=== PATIENT | male | born 1945 | race Caucasian/White ===

== ENCOUNTER 2020-04-11 09:13 | Observation (INO) ==
--- NOTE | 2020-03-02 15:05 | PAT Medication Instructions ---
Medication Instructions Date of Service March 02, 2020 Home Medications apixaban [Eliquis] 5 mg PO BID cholecalciferol (vitamin D3) [Vitamin D3] 50 mcg PO QAM coQ10 (ubiquinol) 100 mg PO QPM diltiazem HCl 240 mg PO QAM [id number]-C-sandra-bosw [Osteo Bi-Flex Triple Strength] 1 tab PO BID magnesium oxide 250 mg PO QAM hezhfjeienbv-vcerubuk-tlzlnp [Multivitamin 50 Plus] 1 tab PO QAM rosuvastatin 20 mg PO QPM ASK your prescriber and surgeon apixaban [Eliquis] 5 mg PO BID -- must be held for at least 3 full days prior to surgery for spinal anesthesia block. Check with you prescriber before stopping. STOP taking 2 weeks before surgery coQ10 (ubiquinol) 100 mg PO QPM [id number]-cwpw-[id number]-C-sandra-bosw [Osteo Bi-Flex Triple Strength] 1 tab PO BID DO NOT take the morning of surgery cholecalciferol (vitamin D3) [Vitamin D3] 50 mcg PO QAM magnesium oxide 250 mg PO QAM [Multivitamin 50 Plus] 1 tab PO QAM Take morning of surgery With a small sip of water, OTHERWISE NOTHING TO EAT OR DRINK AFTER MIDNIGHT: diltiazem HCl 240 mg PO QAM Take evening before surgery rosuvastatin 20 mg PO QPM Other Notes If you have any questions please call us at [phone] or [phone] or [phone] or [phone]
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
[2020-03-06 12:29] LABS: Basophils # (auto) 0.02 K/uL (0-0.2); Basophils % (auto) 0.3 %; Eosinophils # (auto) 0.04 K/uL (0-0.5); Eosinophils % (auto) 0.6 %; Hematocrit (blood only) 41.1 % (42-52); Hemoglobin 14.1 g/dL (14.0-18.0); Immature Granulocytes # (auto) 0.01 K/uL (0.00-0.02); Immature Granulocytes % (auto) 0.1 %; Lymphocytes # (auto) 1.73 K/uL (1.2-3.4); Lymphocytes % (auto) 25.1 %; Mean Corpuscular Hemoglobin 32.3 pg (25-34); Mean Corpuscular Hgb Conc 34.3 g/dL (32-36); Mean Corpuscular Volume 94.1 fL (80-100); Monocytes # (auto) 0.83 K/uL (0.11-0.59); Neutrophils # (auto) 4.26 K/uL (1.4-6.5); Neutrophils % (auto) 61.9 %; Platelet Count 224 K/uL (130-400); RDW Coefficient of Variation 12.7 % (11.5-14.5); RDW Standard Deviation 43.8 fL (36.4-46.3); Red Blood Count 4.37 M/uL (4.7-6.1); White Blood Count 6.89 K/uL (4.8-10.8)
[2020-03-06 12:30] LABS: Appearance Urine Clear (Clear); Bilirubin Urine Negative (Negative); Blood Urine Negative (Negative); Color Urine Dark Yellow; Glucose Urine UA 1+ (Negative); Ketones Urine Negative (Negative); Leukocyte Esterase Urine Negative (Negative); Nitrite Urine Negative (Negative); Protein Urine Negative (Negative); Specific Gravity Urine 1.021 (1.000-1.030); Urobilinogen Urine Negative (Negative); pH Urine 5.5 (4.5-7.5)
[2020-03-06 12:38] LABS: Albumin Level 3.8 gm/dl (3.4-5.0); BUN Creatinine Ratio 19.3 (10-20); Calcium 9.6 mg/dl (8.5-10.1); Creatinine Clr Calc Pharmacy 75.6 ml/min; Est GFR (African American) 83.7; Est GFR (Non-African American) 72.2; Potassium 3.9 mmol/L (3.5-5.1)
[2020-03-06 12:47] LABS: Estimated Average Glucose 146 mg/dl; Hemoglobin A1C 6.7 % (4.5-5.6)
[2020-03-06 12:52] LABS: INR 1.1 (0.9-1.1); Partial Thromboplastin Ratio 1.1; Partial Thromboplastin Time 29.9 Seconds (21.0-31.0); Prothrombin Time 11.6 Seconds (9.0-12.0)
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
[~2020-04-11 09:13] MED LIST: ACETAMINOPHEN 500 MG TAB PO SCH; BUPIVACAINE 0.5 % 5 MG/1 ML PF 10ML VIAL ONE; CeleBREX 200 MG CAP PO SCH; EPINEPHrine INJ 1 MG/ML AMP ONE; FAMOTIDINE 20 MG TAB PO SCH; GABAPENTIN 300 MG CAP PO SCH; LR 500ML BOLUS, THEN 15ML/HR IV SCH; METOCLOPRAMIDE HCL 10 MG TABLET PO SCH; ROPIVACAINE 0.5% 5 MG/ML 30 ML VIAL ONE; ROPIVACAINE 0.5% HCL/PF 150 MG, BUPIVACAINE 0.5% MPF 30 ML, EPINEPHrine 30MG/30ML (OR U... INFIL SCH; TRANEXAMIC ACID 1,000 MG **IV Intra-op IV SCH; TRANEXAMIC ACID 1,000 MG **IV Pre-op IV SCH; ceFAZolin 2000MG 2,000 MG/15 ML SYR IV SCH; dexAMETHasone 4 MG TAB PO SCH
[2020-04-11] MEDS ORDERED: LIDOCAINE HCL 2% 2 ML VIAL/AMP(20MG/ML) INFIL ONE (09:33)
[2020-04-11] MEDS ORDERED: fentaNYL citrate 100 MCG/2 ML VIAL ONE (09:33)
[2020-04-11] MEDS ORDERED: MIDAZOLAM HCL 1 MG/ML 2ML VIAL ONE ×3 (09:33→11:24)
[2020-04-11] MEDS ORDERED: HYDROmorphone INJ 1 MG/ML SYRINGE IV PRN (09:53)
[2020-04-11] MEDS ORDERED: ATROPINE SULFATE 0.1 MG/ML 10ML SYR IV PRN (09:53)
[2020-04-11] MEDS ORDERED: MEPERIDINE HCL 25 MG/ML CARP/VIAL IV PRN (09:53)
[2020-04-11] MEDS ORDERED: PHENYLEPHRINE 100MCG/ML 5ML SYR IV PRN (09:53)
[2020-04-11] MEDS ORDERED: ONDANSETRON INJ 2 MG/ML 2 ML VIAL IV PRN ×2 (09:53→15:28)
[2020-04-11] MEDS ORDERED: fentaNYL citrate 100 MCG/2 ML VIAL IV PRN (09:53)
[2020-04-11] MEDS ORDERED: LABETALOL HCL IV 5 MG/ML 20ML IV PRN (09:53)
[2020-04-11] MEDS ORDERED: ePHEDrine sulfate 50 MG/ML AMP IV PRN (09:53)
--- NOTE | 2020-04-11 10:03 | History & Physical Bridge Note ---
Date of Service April 11, 2020 History & Physical Bridge Note I have examined the patient, reviewed the History & Physical and in the interval since the performance of the History & Physical I have noted the following changes of clinical significance: no changes noted
[2020-04-11] MEDS ORDERED: ONDANSETRON INJ 2 MG/ML 2 ML VIAL ONE (10:39)
[2020-04-11] MEDS ORDERED: BACITRACIN INJ 50,000 UNIT VIAL ONE (10:40)
[2020-04-11] MEDS ORDERED: ORTHO JOINT ANESTHETIC ONE (10:40)
[2020-04-11] MEDS ORDERED: PROPOFOL IV EMULSION 10 MG/ML 20 ML VIAL IV ONE (12:00)
[2020-04-11] MEDS ORDERED: PHENYLEPHRINE 100MCG/ML 5ML SYR ONE (12:44)
[2020-04-11] MEDS ORDERED: ePHEDrine sulfate 50 MG/ML SYR ONE (12:44)
--- NOTE | 2020-04-11 12:47 | Operative Report ---
Post Operative Report Pre & Post Diagnosis Operation Date: 04/11/20 10:45 Pre-Op Diagnosis: Osteoarthritis, Left Knee Post-Op Diagnosis: Osteoarthritis, Left Knee I identified the patient and participated in the time-out.: Yes Procedure 6 tibia 10 poly-Utilizing [employer] neelaney 2 patient matched total knee arthroplasty size 6 femur 10 poly 32 oval patella Operation Date: 04/11/20 10:45 Actual Procedures p Left Total Knee Arthroplasty(Left) - Fahad Grady DO Surgeon Fahad Grady DO Pot Filler Jabier RASMUSSEN Estimated Blood Loss 5 Findings Consistent with Post-Op Diagnosis Patient presents with severe end-stage tricompartmental degenerative joint disease left knee varus alignment eburnated [id number] marginal osteophyte subchondral sclerosis moderate to large effusion Specimens Bone and cartilage Drains Medium bore Hemovac Anesthesia Type MAC Spinal Regional Complications none Disposition Accompanied Patient To Recovery: No Disposition: Recovery Room Indications Patient resents with severe end-stage tricompartmental degenerative joint disease in the failing conservative management clinic physical therapy anti- inflammatories relative rest activity modification corticosteroid injection Visco supplementation patient presents for left total knee arthroplasty Description of Procedure After proper prepping and draping of the left lower extremity anterior midline incision was made over the region of the extensor extensor mechanism after meticulous hemostasis was obtained and maintained in subcutaneous tissues a medial parapatellar incision was made The patella was subluxed lateralward the medial lateral gutter were cleaned from any hypertrophic synovitis and scar tissue of the distal femoral block was placed and the distal femoral osteotomy cut was made subsequently the chamfers anterior and posterior osteotomy cuts were made utilizing the 4-in-1 block the tibia was subsequently subluxed anteriorward medial and ateral meniscal remnants were excised in their entirety remnants of the anterior and posterior cruciate ligaments were excised in their entirety excellent exposure of the proximal tibia was obtained the tibial osteotomy guide was placed on the proximal tibial osteotomy cut was made once again the knee was irrigated with copious amounts of sterile saline solution the patella was subsequently everted lateralward thickened scar tissue around the patella was removed the patella was subsequently cut utilizing a freehand techni que and was drilled prepared for final preparation and placement of patella socially flexion-extension gaps were checked and the equal and symmetric trials were placed to the appropriate femoral and tibial trials with poly-spacer being placed for equal flexion and extension gaps and full range of motion including extension to 0 and flexion to 140 the trial components after having been taken to recovery range of motion was subsequently removed meticulous hemostasis was obtained and maintained subsequently a knee block injection of joint cocktail including ropivacaine 0.5% 150 mg. Bupivacaine 0.5% epinephrine 1-200,030 mL's toradol 30 mg dexamethasone 4 mg ketamine 10 mg clonidine 100 micrograms normal saline solution 30 mg was infiltrated into the soft tissues of the posterior knee medial lateral gutters and periosteal synovium special attention was paid to protect neurovascular structures at all times subsequently trial components having been removed the knee was irrigated with sterile saline solution. debris was removed the proximal tibia was subsequently prepared and was made ready for the placement of the tibial component tibial component was also cemented and tamped into position the femoral component was subsequently placed and cemented in the position the patellar component was subsequently cemented in position because hemostasis once again obtained and maintained wound having been thoroughly irrigated with debridement and debridement lavage was performed as well as a medial parapatellar incision closed with #1 Vicryl in interrupted fashion subcutaneous was closed with #2 Vicryl skin was closed with skin clips. PA-C was necessary for prepping and drapping as well as wound closure of deep fascia Sub cutaneous tissue and skin and was necessary for the case. A sterile compressive dressing was placed patient was taken to recovery in stable condition of report dictated by Miguel A I attest to the content of the Intraoperative Record and any orders documented therein. Any exceptions are noted below. I attest to the content of the Intraoperative Record and any orders documented therein. Any exceptions are noted below.
--- NOTE | 2020-04-11 14:11 | XRay Report ---
XR knee LT 1 or 2V routine CLINICAL HISTORY: Postoperative evaluation. COMPARISON: None FINDINGS: Alignment of the total left knee arthroplasty is anatomic. There is no periprosthetic frac ture or unexpected radiopaque foreign body. There is moderate vascular calcification. Surgical drain is noted. IMPRESSION: Expected findings following total left knee arthroplasty. ACT 112: Negative or not required by law. Electronically signed by: Brent Schmitz M.D. 04/11/2020 2:10 PM
--- NOTE | 2020-04-11 14:22 | Anesthesiology Progress Note ---
Date of Service April 11, 2020 Anesthesia Post Procedure Vital Signs Vital Signs: Temp Pulse Pulse Resp BP Pulse Ox 04/11/20 14:15 63 16 114/67 97 04/11/20 14:05 36.5 C 69 16 114/75 97 04/11/20 13:55 73 16 129/82 95 04/11/20 13:45 78 16 124/74 99 04/11/20 13:35 36.4 C L 88 16 118/66 95 04/11/20 10:26 36.9 C 58 L 18 149/82 H 98 04/11/20 09:47 36.5 C 58 L 18 166/94 H 96 Transfer of Care Handoff Completed per policy Notes Mental Status: alert / awake / arousable Patient Amnestic to Procedure: Yes Nausea / Vomiting: adequately controlled Pain: adequately controlled Airway Patency, RR, SpO2: stable & adequate BP & HR: stable & adequate Hydration State: stable & adequate Neuraxial Anesthesia: was administered and sensory block is resolving Anesthetic Complications: no major complications apparent and Pt Satisfied with anesthetic care
[2020-04-11] MEDS ORDERED: bisacodyL 10 MG SUPP PR PRN (15:28)
[2020-04-11] MEDS ORDERED: NALOXONE HCL 0.4 MG/1 ML VIAL/CARP IV PRN (15:28)
[2020-04-11] MEDS ORDERED: MAGNESIUM HYDROXIDE SUSP 30 ML UDC PO PRN (15:28)
[2020-04-11] MEDS ORDERED: HYDROmorphone INJ 0.5 MG/0.5 ML SYR IV PRN (15:28)
[2020-04-11] MEDS: SODIUM CHLORIDE 0.9% 1000ML 1,000 ML IV SCH (16:53)
[2020-04-11] MEDS: FERROUS GLUCONATE 324 MG TAB PO SCH (17:50)
[2020-04-11] MEDS: ACETAMINOPHEN 500 MG TAB PO SCH (17:51)
[2020-04-11] MEDS: APIXABAN 5 MG TABLET PO SCH (20:20)
[2020-04-11] MEDS: ceFAZolin 2000MG 2,000 MG/15 ML SYR IV SCH (20:20)
[2020-04-11] MEDS: DOCUSATE SODIUM 100 MG CAP PO SCH (20:21)
[2020-04-11] MEDS ORDERED: SENNA 8.6 MG TAB PO SCH (21:00)
[2020-04-11] MEDS ORDERED: ROSUVASTATIN CALCIUM 20 MG TAB PO SCH (21:00)
[2020-04-11] MEDS ORDERED: NON-FORMULARY MEDICATION (Coq10 (Ubiquinol) 100 mg Capsule) PO SCH (21:00)
[2020-04-11] MEDS: oxyCODONE HCL IR 5 MG TAB (IMMEDIATE RELEASE) PO PRN (23:34)
[2020-04-12] MEDS: ceFAZolin 2000MG 2,000 MG/15 ML SYR IV SCH (03:11)
[2020-04-12] MEDS: ACETAMINOPHEN 500 MG TAB PO SCH ×2 (03:13→09:06)
[2020-04-12] MEDS: SODIUM CHLORIDE 0.9% 1000ML 1,000 ML IV SCH (03:47)
[2020-04-12] MEDS: oxyCODONE HCL IR 5 MG TAB (IMMEDIATE RELEASE) PO PRN (05:58)
[2020-04-12 06:08] LABS: Hematocrit (blood only) 35.1 % (42-52); Hemoglobin 12.1 g/dL (14.0-18.0); Mean Corpuscular Hemoglobin 32.3 pg (25-34); Mean Corpuscular Hgb Conc 34.5 g/dL (32-36); Mean Corpuscular Volume 93.6 fL (80-100); Mean Platelet Volume 10.2 fL (7.4-10.4); Platelet Count 223 K/uL (130-400); RDW Coefficient of Variation 12.5 % (11.5-14.5); RDW Standard Deviation 42.5 fL (36.4-46.3); Red Blood Count 3.75 M/uL (4.7-6.1); White Blood Count 13.94 K/uL (4.8-10.8)
[2020-04-12 06:29] LABS: BUN Creatinine Ratio 17.6 (10-20); Calcium 8.9 mg/dl (8.5-10.1); Creatinine Clr Calc Pharmacy 71.2 ml/min; Est GFR (African American) 79.1; Est GFR (Non-African American) 68.2; Potassium 4.1 mmol/L (3.5-5.1)
--- NOTE | 2020-04-12 07:50 | Orthopedic Progress Note ---
Date of Service April 12, 2020 Assessment & Plan (1) Arthritis of knee, left: Postop day 1 status post left total knee arthroplasty. Mild leukocytosis-patient asymptomatic currently. Likely due to surgical stress and preoperative steroids. PT/OT protocols. Weightbearing as tolerated. DVT prophylaxis-apixaban twice daily, SCDs, AROLDO andrade. Pain management as written. DC planning -patient planning for home health services upon discharge. Admission and Anticipated Discharge Date Admission Date: April 11, 2020 Subjective Postop day 1 Patient currently sitting up in bed awake and alert. He appears comfortable. States he has some stiffness in the operative knee this morning but otherwise is feeling fine. Denies any shortness of breath, chest pain, lightheadedness. Pain is controlled. Physical Exam Physical Exam: Dressings are clean, dry, and intact. Calves are soft and nontender. Neurovascular is intact. Toes are mobile. He has good dorsiflexion and plantarflexion in the left foot and ankle. Hemovac drainage was 50 mL from the previous shift. Results & Data ([facility]) Vital Signs (Past 12 Hours) Vital Signs Temp Pulse Resp BP Pulse Ox 04/12/20 03:14 36.5 C 56 L 14 146/88 H 96 04/11/20 23:55 36.5 C 63 18 135/81 95 Laboratory Results Laboratory Results WBC 13.94 K/uL (4.8-10.8) H 04/12/20 05:36 RBC 3.75 M/uL (4.7-6.1) L 04/12/20 05:36 Hgb 12.1 g/dL (14.0-18.0) L 04/12/20 05:36 Hct 35.1 % (42-52) L 04/12/20 05:36 MCV 93.6 fL (80-100) 04/12/20 05:36 MCH 32.3 pg (25-34) 04/12/20 05:36 MCHC 34.5 g/dL (32-36) 04/12/20 05:36 RDW Std Deviation 42.5 fL (36.4-46.3) 04/12/20 05:36 RDW Coeff of Glen 12.5 % (11.5-14.5) 04/12/20 05:36 Plt Count 223 K/uL (130-400) 04/12/20 05:36 MPV 10.2 fL (7.4-10.4) 04/12/20 05:36 Immature Gran % (Auto) 0.1 % 03/06/20 11:42 Neut % (Auto) 61.9 % 03/06/20 11:42 Lymph % (Auto) 25.1 % 03/06/20 11:42 [place] % (Auto) 12.0 % 03/06/20 11:42 Eos % (Auto) 0.6 % 03/06/20 11:42 Baso % (Auto) 0.3 % 03/06/20 11:42 Neut # (Auto) 4.26 K/uL (1.4-6.5) 03/06/20 11:42 Lymph # (Auto) 1.73 K/uL (1.2-3.4) 03/06/20 11:42 [place] # (Auto) 0.83 K/uL (0.11-0.59) H 03/06/20 11:42 Eos # (Auto) 0.04 K/uL (0-0.5) 03/06/20 11:42 Baso # (Auto) 0.02 K/uL (0-0.2) 03/06/20 11:42 Immature Gran # (Auto) 0.01 K/uL (0.00-0.02) 03/06/20 11:42 PT 11.6 Seconds (9.0-12.0) 03/06/20 11:42 INR 1.1 (0.9-1.1) 03/06/20 11:42 APTT 29.9 Seconds (21.0-31.0) 03/06/20 11:42 PTT Ratio 1.1 03/06/20 11:42 Sodium 137 mmol/L (136-145) 04/12/20 05:36 Potassium 4.1 mmol/L (3.5-5.1) 04/12/20 05:36 Chloride 107 mmol/L (98-107) 04/12/20 05:36 Carbon Dioxide 25 mmol/L (21-32) 04/12/20 05:36 Anion Gap 5.0 (3-11) 04/12/20 05:36 BUN 19 mg/dl (7-18) H 04/12/20 05:36 Creatinine 1.08 mg/dl (0.6-1.4) 04/12/20 05:36 Est Cr Clr Drug Dosing 71.2 ml/min 04/12/20 05:36 Est GFR ( Amer) 79.1 04/12/20 05:36 Est GFR (Non-Af Amer) 68.2 04/12/20 05:36 BUN/Creatinine Ratio 17.6 (-20) 04/12/20 05:36 Glucose 168 mg/dl (70-99) H 04/12/20 05:36 POC Glucose 175 mg/dl (70-99) H 04/11/20 17:27 Estimat Average Glucose 146 mg/dl 03/06/20 11:42 Hemoglobin A1c 6.7 % (4.5-5.6) H 03/06/20 11:42 Calcium 8.9 mg/dl (8.5-10.1) 04/12/20 05:36 Albumin 3.8 gm/dl (3.4-5.0) 03/06/20 11:42 Urine Color Dark Yellow 03/06/20 11:42 Urine Appearance Clear (Clear) 03/06/20 11:42 Urine pH 5.5 (4.5-7.5) 03/06/20 11:42 Ur Specific [place] 1.021 (1.000-1.030) 03/06/20 11:42 Urine Protein Negative (Negative) 03/06/20 11:42 Urine Glucose (UA) 1+ (Negative) H 03/06/20 11:42 Urine Ketones Negative (Negative) 03/06/20 11:42 Urine Blood Negative (Negative) 03/06/20 11:42 Urine Nitrite Negative (Negative) 03/06/20 11:42 Urine Bilirubin Negative (Negative) 03/06/20 11:42 Urine Urobilinogen Negative (Negative) 03/06/20 11:42 Ur Leukocyte Esterase Negative (Negative) 03/06/20 11:42 Blood Type O Positive 03/06/20 11:42 Antibody Screen NEGATIVE 03/06/20 11:42
[2020-04-12] MEDS ORDERED: dilTIAZem HCL 240 MG CAPCR PO SCH (09:00)
[2020-04-12] MEDS ORDERED: MAGNESIUM OXIDE 400 MG TAB PO SCH (09:00)
[2020-04-12] MEDS ORDERED: MULTIVITAMIN TAB PO SCH (09:00)
[2020-04-12] MEDS: FERROUS GLUCONATE 324 MG TAB PO SCH (09:05)
[2020-04-12] MEDS: DOCUSATE SODIUM 100 MG CAP PO SCH (09:06)
[2020-04-12] MEDS: APIXABAN 5 MG TABLET PO SCH (09:06)
--- NOTE | 2020-04-14 11:44 | Discharge Summary ---
Date of Service April 14, 2020 Admission HPI Per Admitting Provider Mr William is a 74 year old male who complains of left knee pain, presents for pre- op eval prior to a left total knee replacement at [facility]. He presents with pain and decreased range of motion. He states that the symptoms have been chronic non-traumatic. Patient reports history of football injury in 1965. He has been having b/l knee pain for "many years, left is his worst knee. Currently the patient states that the symptoms are moderate-severe and the pain is described as aching, throbbing, sharp and shooting. the symptoms are aggravated by ascending stairs, daily activities, driving, exercise, first steps while awake, jumping, kneeling, movement, repetitive activities, sleeping in any position, squatting, standing, walking, weight bearing and weather changes. In addition to knee pain he is also experiencing decreased mobility, difficulty bending, difficulty going to sleep, instability, joint pain, limping, nighttime awakening, pain, stiffness, tenderness and weakness. Prior NSAIDs include Aleve and IBU. Patient has been treated with previous visco supplementation without much relief. Admission Exam Per Admitting Provider Physical Exam: HT: 5ft 9in WT: 98.4kg Constitutional: WD/WN, vitals as above no acute distress Respiratory: normal respiratory effort, lungs clear to auscultation no respiratory distress, no labored breathing and does not use accessory muscles Cardiovascular: RRR, no murmur, no edema Gastrointestinal (Abdomen): normal bowel sounds, soft, nontender, no hepatosplenomegaly Musculoskeletal: Knee: + knee abnormal to inspection (Left Knee- ), + effusion (+1 effusion), + surgical incision (well healed portals), + limited ROM of knee (ROM 0/3/110), + knee ROM with crepitation, + joint line tenderness (medial joint line) and + Cesar's sign positive; no deformity, no skin erythema, no ecchymosis, no valgus laxity, no varus laxity, anterior drawer test negative, Anuja's sign negative and pivot shift test negative Principal Diagnosis Left Knee Djd Discharge Exam Physical Exam: Dressings are clean, dry, and intact. Calves are soft and nontender. Neurovascular is intact. Toes are mobile. He has good dorsiflexion and plantarflexion in the left foot and ankle. Hemovac drainage was 50 mL from the previous shift. Results & Data ([facility]) Vital Signs (Past 12 Hours) Vital Signs Temp Pulse Resp BP Pulse Ox 04/12/20 03:14 36.5 C 56 L 14 146/88 H 96 04/11/20 23:55 36.5 C 63 18 135/81 95 Laboratory Results Laboratory Results WBC 13.94 K/uL (4.8-10.8) H 04/12/20 05:36 RBC 3.75 M/uL (4.7-6.1) L 04/12/20 05:36 Hgb 12.1 g/dL (14.0-18.0) L 04/12/20 05:36 Hct 35.1 % (42-52) L 04/12/20 05:36 Discharge Data Allergies Allergy/AdvReac Type Severity Reaction Status Date / Time latex Allergy Unknown WELTS ON Verified 04/11/20 09:45 SKIN Consultations 04/11/20 15:28 Consult Case Management - Discharge Planning Routine Procedures Performed Operation Date: 04/11/20 10:45 Actual Procedures p Left Total Knee Arthroplasty(Left) - Fahad Grady DO Ordered Studies 04/11/20 05:00 US - OR guided needle placemen Routine Diabetes Follow up Diabetes Follow-up Needed for Newly Diagnosed Diabetes Hospital Course (1) Arthritis of knee, left: Patient: ALYSE WILLIAM AAdmit Date: 04/11/20MR#: [id number] Phy: Fahad Grady D.O.Acct ID:[id number] Phy: Valeria Gomez MDBirth Date: 1945Fa Phy:Age: 74Location: 3WSex: M Room/Bed: [facility] cc: ~ *NOTICE TO RECEIVING DEMOCRAT/AGENCY This information is strictly Confidential and protected under [place] law. [place] law prohibits you from making any further disclosure of this information unless further disclosure is expressly permitted by the written consent of the person to whom it pertains or is authorized by law. A general authorization for the release of medical or other information is not sufficient for this purpose. Hospital accepts no responsibility if the information is made available to any other person, INCLUDING THE PATIENT. ADDENDUM04/12/[id number] (Blank) Addendum April 12, 2020 10:31 Recheck on patient this morning. Currently PT and OT are working with him. They state that he is doing quite well with his physical therapy and would be a good candidate for home therapy upon discharge. Plan for discharge to home today. Addendum Signed By:<Electronically signed by Jabier Retana PA-C>04/12/202Addendum Cosigned By:<Electronically signed by Joseph Cotto MD>04/12/20 1256 Created: 04/12/2004/21/1032 Date of Service April 12, 2020 Assessment & Plan (1) Arthritis of knee, left: Postop day 1 status post left total knee arthroplasty. Mild leukocytosis-patient asymptomatic currently. Likely due to surgical stress and preoperative steroids. PT/OT protocols. Weightbearing as tolerated. DVT prophylaxis-apixaban twice daily, SCDs, AROLDO andrade. Pain management as written. DC planning -patient planning for home health services upon discharge. Admission and Anticipated Discharge Date Admission Date: April 11, 2020 Subjective Postop day 1 Patient currently sitting up in bed awake and alert. He appears comfortable. States he has some stiffness in the operative knee this morning but otherwise is feeling fine. Denies any shortness of breath, chest pain, lightheadedness. Pain is controlled. Physical Exam Physical Exam: Dressings are clean, dry, and intact. Calves are soft and nontender. Neurovascular is intact. Toes are mobile. He has good dorsiflexion and plantarflexion in the left foot and ankle. Hemovac drainage was 50 mL from the previous shift. Results & Data ([facility]) Vital Signs (Past 12 Hours) Vital Signs Temp Pulse Resp BP Pulse Ox 04/12/20 03:14 36.5 C 56 L 14 146/88 H 96 04/11/20 23:55 36.5 C 63 18 135/81 95 Laboratory Results Laboratory Results WBC 13.94 K/uL (4.8-10.8) H 04/12/20 05:36 RBC 3.75 M/uL (4.7-6.1) L 04/12/20 05:36 Hgb 12.1 g/dL (14.0-18.0) L 04/12/20 05:36 Hct 35.1 % (42-52) L 04/12/20 05:36 MCV 93.6 fL (80-100) 04/12/20 05:36 MCH 32.3 pg (25-34) 04/12/20 05:36 MCHC 34.5 g/dL (32-36) 04/12/20 05:36 RDW Std Deviation 42.5 fL (36.4-46.3) 04/12/20 05:36 RDW Coeff of Glen 12.5 % (11.5-14.5) 04/12/20 05:36 Plt Count 223 K/uL (130-400) 04/12/20 05:36 MPV 10.2 fL (7.4-10.4) 04/12/20 05:36 Immature Gran % (Auto) 0.1 % 03/06/20 11:42 Neut % (Auto) 61.9 % 03/06/20 11:42 Lymph % (Auto) 25.1 % 03/06/20 11:42 [place] % (Auto) 12.0 % 03/06/20 11:42 Eos % (Auto) 0.6 % 03/06/20 11:42 Baso % (Auto) 0.3 % 03/06/20 11:42 Neut # (Auto) 4.26 K/uL (1.4-6.5) 03/06/20 11:42 Lymph # (Auto) 1.73 K/uL (1.2-3.4) 03/06/20 11:42 [place] # (Auto) 0.83 K/uL (0.11-0.59) H 03/06/20 11:42 Eos # (Auto) 0.04 K/uL (0-0.5) 03/06/20 11:42 Baso # (Auto) 0.02 K/uL (0-0.2) 03/06/20 11:42 Immature Gran # (Auto) 0.01 K/uL (0.00-0.02) 03/06/20 11:42 PT 11.6 Seconds (9.0-12.0) 03/06/20 11:42 INR 1.1 (0.9-1.1) 03/06/20 11:42 APTT 29.9 Seconds (21.0-31.0) 03/06/20 11:42 PTT Ratio 1.1 03/06/20 11:42 Sodium 137 mmol/L (136-145) 04/12/20 05:36 Potassium 4.1 mmol/L (3.5-5.1) 04/12/20 05:36 Chloride 107 mmol/L (98-107) 04/12/20 05:36 Carbon Dioxide 25 mmol/L (21-32) 04/12/20 05:36 Anion Gap 5.0 (3-11) 04/12/20 05:36 BUN 19 mg/dl (7-18) H 04/12/20 05:36 Creatinine 1.08 mg/dl (0.6-1.4) 04/12/20 05:36 Est Cr Clr Drug Dosing 71.2 ml/min 04/12/20 05:36 Est GFR ( Amer) 79.1 04/12/20 05:36 Est GFR (Non-Af Amer) 68.2 04/12/20 05:36 BUN/Creatinine Ratio 17.6 (-20) 04/12/20 05:36 Glucose 168 mg/dl (70-99) H 04/12/20 05:36 POC Glucose 175 mg/dl (70-99) H 04/11/20 17:27 Estimat Average Glucose 146 mg/dl 03/06/20 11:42 Hemoglobin A1c 6.7 % (4.5-5.6) H 03/06/20 11:42 Calcium 8.9 mg/dl (8.5-10.1) 04/12/20 05:36 Albumin 3.8 gm/dl (3.4-5.0) 03/06/20 11:42 Urine Color Dark Yellow 03/06/20 11:42 Urine Appearance Clear (Clear) 03/06/20 11:42 Urine pH 5.5 (4.5-7.5) 03/06/20 11:42 Ur Specific [place] 1.021 (1.000-1.030) 03/06/20 11:42 Urine Protein Negative (Negative) 03/06/20 11:42 Urine Glucose (UA) 1+ (Negative) H 03/06/20 11:42 Urine Ketones Negative (Negative) 03/06/20 11:42 Urine Blood Negative (Negative) 03/06/20 11:42 Urine Nitrite Negative (Negative) 03/06/20 11:42 Urine Bilirubin Negative (Negative) 03/06/20 11:42 Urine Urobilinogen Negative (Negative) 03/06/20 11:42 Ur Leukocyte Esterase Negative (Negative) 03/06/20 11:42 Blood Type O Positive 03/06/20 11:42 Antibody Screen NEGATIVE 03/06/20 11:42 Total Time Total Time Spent Total Time Spent (In Minutes): 5 Discharge Plan Discharge Items Patient Disposition: Home - Home Health Services Reason For Visit: Osteoarthritis, Left Knee Discharge Diagnosis: Osteoarthritis left knee Activity: Per Instructions section Weightbearing: Left weightbearing Weightbearing Comment: As tolerated with walker Non-emergency contact: Surgeon Call non-emergency contact if: your pain is not controlled, your temperature is above 101.5, your wound has increased redness and your wound has increased drainage Follow-up/Referrals: Fahad Grady DO [Surgeon] - 04/25/20 11:30 am (APPT WITH [facility]) Valeria Gomez MD [Primary Care Provider] - Diet: Carb Consistent or DM2 Addtl Attending Provider Instructions: ACTIVITY RECOMMENDATIONS: SELF CARE INSTRUCTIONS AFTER TOTAL KNEE REPLACEMENT A. You may need to continue a physical therapy program after discharge from the hospital. There are several options available to you. Your doctor will assist you in selecting the best one for you. 1. An out-patient facility 2 to 3 times a week for therapy or home therapy. 2. Continue working on all exercises taught to you in the hospital. Your goals should be to increase bending of your knee to 90 degrees and beyond and to fully straighten your knee. B. You may progress at your own pace from walking with a walker or crutches to a cane; then to no assistive devices. C. Make walking a part of your daily routine. Be up as much as comfortable with rest periods throughout the day. Rest with leg elevation is very important. Use the ice wrap frequently for the first 3-4 weeks. D. There are no restrictions on activities. You may ride in a car, shop, participate in audio visual director and all social activities. E. Wear the long elastic stockings (AROLDO hose) 20 hours a day for 2 weeks after surgery. They can be removed several times a day for laundering and for a bath. F. You may shower, no tub baths until cleared by your doctor. SPECIAL CARE INSTRUCTIONS: VERY IMPORTANT TO READ AND REVIEW A. There are a few signs you need to watch for after you are home. Call [facility] if you notice any of the followin. Increased severe knee pain. Some pain is expected especially when you exercise. 2. Increased swelling in your leg or knee; pain or swelling of the calf muscle in either lower leg. 3. Any fluid drainage from the incision. 4. Shortness of breath or chest pain. B. Please call [facility] at if you have any concerns or questions about your operation or recovery. The doctor or his nurse will return your call promptly. C. You must take antibiotics before dental work, bladder, bowel or other surgery. Your doctor will provide you with a permanent care to carry describing this precaution. IMPORTANT: * RESUME YOUR APIXABAN TWICE A DAY. . * CALL IF INCREASED PAIN, REDNESS, DRAINAGE OR FEVER GREATER THAT 101. * WEAR AROLDO HOSE 20 HOURS PER DAY FOR 2 WEEKS. * DERMABOND Prineo- This is a mesh tape dressing that is covered with glue. It should remain in place until the incision is properly healed, usually 10-14 days. This dressing is designed to naturally slough off. You may trim the excess mesh tape as it peels off. Incision may be briefly wet in a shower. Dry immediately by blotting with a clean, dry towel. Do not bath or swim until instructed by your doctor. Do not scratch, rub, or pick at the dressing. Do not apply any topical ointments or lotions until dressing is completely removed and/or instructed by your doctor. Keep the wound covered with gauze for the first week. Thereafter, change as needed until seen in the office. There may be a small piece of suture material at one end of your incision. Do not pull or trim this. If it is bothersome or catching on clothing, you may cover it with a band-aid. Call the office with any questions about your knee incision. . FOLLOW UP VISIT: If appointment is not already scheduled: Please call [facility] to make a follow-up appointment for 2 weeks after your surgery at . Stand-Alone Forms: My [facility], Opioid Pain Management, Smoking Cessation Medications and DC Order Prescriptions: New acetaminophen 500 mg Tablet 1,000 mg PO Q8H 14 Days Qty: 84 RF: 0 oxycodone 5 mg Tablet 5 mg PO Q4H MDD 6 PRN (Reason: pain) Qty: 30 RF: 0 polyethylene glycol 3350 [Miralax] 17 gram powder in packet 17 g PO DAILY PRN (Reason: constipation) Qty: 5 RF: 0 cefadroxil 500 mg capsule 500 mg PO BID Qty: 28 RF: 1 Continued diltiazem HCl 240 mg Capsule,Extended Release 24 Hr 240 mg PO QAM RF: 0 magnesium oxide 250 mg magnesium Tablet 250 mg PO QAM RF: 0 Multivitamin 50 Plus Tablet 1 tab PO QAM RF: 0 cholecalciferol (vitamin D3) [Vitamin D3] 50 mcg (2,000 unit) Tablet 50 mcg PO QAM RF: 0 Eliquis 5 mg Tablet 5 mg PO BID RF: 0 rosuvastatin 20 mg Tablet 20 mg PO QPM RF: 0 coQ10 (ubiquinol) 100 mg Capsule 100 mg PO QPM RF: 0 Discontinued Osteo Bi-Flex Triple Strength 750 mg-644 mg- 30 mg-1 mg Tablet 1 tab PO BID RF: 0 Discharge Orders: Discharge Order (Routine); Ordered 04/12/20 Ordered By: Jabier Cline/Other Patient Handouts: Knee Osteotomy, How Your Knee Works, Knee Surg Exercise After, Post-Op Tips: Knee, Eating Heart-Healthy Foods, A1C Admission Data Admit Date/Time: 04/11/20 13:52 Attending Provider: Fahad Grady Admit Provider: Fahad Grady Primary Care Provider: Valeria Gomez Other Providers: [facility],Home Healthcare Other Interventions: Discharge Summary Assessment (RN) Last Done: 04/12/20 10:55
== END 2020-04-12 13:32 | disposition home health service (06) ==
LOC: ASU 09:13 → 3W 09:13
DX: Z85.828 Personal history of other malignant neoplasm of skin; E11.9 Type 2 diabetes mellitus without complications; I10 Essential (primary) hypertension; Z91.040 Latex allergy status; M17.12 Unilateral primary osteoarthritis, left knee; Z79.899 Other long term (current) drug therapy; Z79.01 Long term (current) use of anticoagulants; I48.91 Unspecified atrial fibrillation